=== PATIENT | female | born 1945 | race Caucasian/White ===

== ENCOUNTER 2016-12-29 22:43 | Emergency (ER) | payer MEDICARE, MEDICAID ==
[~2016-12-29] VITALS: Ht 165.1 cm; Wt 61.5 kg
[2016-12-29] MEDS ORDERED: HYDROcodone/APAP 5/325 TABLET ONE (23:20)
[2016-12-29] MEDS ORDERED: HYDROcodone/APAP 5/325 TABLET PO ONE (23:30)
[2016-12-30] MEDS ORDERED: BACITRACIN ZINC OINT 500U/GM, 0.9 GM ONE (01:13)
[2016-12-30 01:28] VITALS: BP 193/95
== END 2016-12-30 01:51 | disposition home or self-care (01) ==
LOC: ED 23:59
DX: G89.11 Acute pain due to trauma (principal); M79.662 Pain in left lower leg; M79.661 Pain in right lower leg; W01.0XXA Fall on same level from slipping, tripping and stumbling without subsequent striking against object, initial encounter; Y93.9 Activity, unspecified; Y99.8 Other external cause status; Y92.009 Unspecified place in unspecified non-institutional (private) residence as the place of occurrence of the external cause; J45.909 Unspecified asthma, uncomplicated; J44.9 Chronic obstructive pulmonary disease, unspecified

== ENCOUNTER 2018-01-08 09:51 | Emergency (ER) | payer MEDICARE, MEDICAID ==
[~2018-01-08] VITALS: Ht 162.6 cm; Wt 61.0 kg
[2018-01-08 10:39] LABS: BASOPHILS # (AUTO) 0.02 x10^3/uL (0-0.1); BASOPHILS % (AUTO) 0 % (0-1); EOSINOPHILS # (AUTO) 0.11 x10^3/uL (0-0.4); EOSINOPHILS % (AUTO) 1 % (1-7); LYMPHOCYTES % (AUTO) 12 % (22-44); MD NO; MEAN CORPUSCULAR HEMOGLOBIN 26.8 pg (27.0-34.8); MEAN CORPUSCULAR HGB CONC 31.7 g/dL (32.4-35.8); MEAN CORPUSCULAR VOLUME 84.4 fL (80-100); MEAN PLATELET VOLUME 7.3 fL (7.4-10.4); MONOCYTES # (AUTO) 0.84 x10^3/uL (0.2-0.8); MONOCYTES % (AUTO) 11 % (2-9); NEUTROPHILS # (AUTO) 5.89 x10^3/uL (1.8-6.8); NEUTROPHILS % (AUTO) 76 % (42-75); PLATELET COUNT 313 x10^3/uL (130-400); RED BLOOD COUNT 6.27 x10^6/uL (3.82-5.3); RED CELL DISTRIBUTION WIDTH 17.9 % (9.6-15.2)
[2018-01-08] MEDS: ALBUTEROL/IPRATROPIUM 2.5MG/0.5MG, 3 ML NPPB SCH (10:42)
[2018-01-08] MEDS ORDERED: ALBUTEROL/IPRATROPIUM 2.5MG/0.5MG, 3 ML ONE ×2 (10:44→12:05)
[2018-01-08 10:51] LABS: ALBUMIN 2.8 g/dL (3.4-5.0); ANION GAP 5 mmol/L (5-15); CALCIUM 8.4 mg/dL (8.5-10.1); CHLORIDE 93 mmol/L (98-107)
[2018-01-08 10:57] LABS: ALANINE AMINOTRANSFERASE 28 U/L (12-78); ALKALINE PHOSPHATASE 85 U/L (45-117); BILIRUBIN,TOTAL 0.5 mg/dL (0.2-1.0); CREATININE 0.98 mg/dL (0.55-1.02); TROPONIN I 0.116 ng/mL (0.000-0.045)
[2018-01-08 11:30] VITALS: BP 176/90
[2018-01-08] MEDS ORDERED: ASPIRIN 81 MG TABLET CHEW PO ONE (12:00)
[2018-01-08] MEDS ORDERED: SODIUM CHLORIDE FLUSH 10ML SYR IVF ONE (12:00)
[2018-01-08] MEDS ORDERED: OMNIPAQUE 350 MG/ML, 100ML BOTTLE ONE (13:07)
[2018-01-09] MEDS ORDERED: HYDROCORT (13:33)
[2018-01-09] MEDS ORDERED: POLY17PO3 PO (13:33)
[2018-01-09] MEDS ORDERED: ALPR1TAB6 PO (13:33)
[2018-01-09] MEDS ORDERED: ALBU18HF PO (13:33)
[2018-01-09] MEDS ORDERED: DICLOFENAC SODIUM (13:34)
[2018-01-09] MEDS ORDERED: HYDR25TA6 PO (14:15)
== END 2018-01-08 14:36 | disposition left against medical advice (07) ==
LOC: ED 14:05
DX: M79.672 Pain in left foot (principal); M25.572 Pain in left ankle and joints of left foot; R60.0 Localized edema; J44.1 Chronic obstructive pulmonary disease with (acute) exacerbation; I50.9 Heart failure, unspecified; J96.91 Respiratory failure, unspecified with hypoxia; F17.200 Nicotine dependence, unspecified, uncomplicated; Z86.19 Personal history of other infectious and parasitic diseases
CPT/HCPCS: 36415; 71045; 71275; 73610; 73630; 80053; 83880; 84484; 85025; 93005; 93970; 94640; 99291; Q9967; 99285; J7620

== ENCOUNTER 2018-01-09 10:03 | Inpatient (IN) | payer MEDICARE, MEDICAID ==
[~2018-01-09] VITALS: Ht 162.6 cm; Wt 61.0 kg
[2018-01-09 10:33] LABS: BASOPHILS # (AUTO) 0.01 x10^3/uL (0-0.1); BASOPHILS % (AUTO) 0 % (0-1); EOSINOPHILS # (AUTO) 0.13 x10^3/uL (0-0.4); EOSINOPHILS % (AUTO) 2 % (1-7); LYMPHOCYTES # (AUTO) 0.86 x10^3/uL (1-3.4); LYMPHOCYTES % (AUTO) 10 % (22-44); MD NO; MEAN CORPUSCULAR HEMOGLOBIN 26.8 pg (27.0-34.8); MEAN CORPUSCULAR HGB CONC 31.8 g/dL (32.4-35.8); MEAN CORPUSCULAR VOLUME 84.5 fL (80-100); MEAN PLATELET VOLUME 7.4 fL (7.4-10.4); MONOCYTES # (AUTO) 0.58 x10^3/uL (0.2-0.8); MONOCYTES % (AUTO) 7 % (2-9); NEUTROPHILS % (AUTO) 81 % (42-75); PLATELET COUNT 299 x10^3/uL (130-400); RED BLOOD COUNT 6.37 x10^6/uL (3.82-5.3); RED CELL DISTRIBUTION WIDTH 18.3 % (9.6-15.2)
[2018-01-09 10:44] LABS: ALANINE AMINOTRANSFERASE 30 U/L (12-78); ANION GAP 5 mmol/L (5-15); CHLORIDE 93 mmol/L (98-107)
[2018-01-09 10:49] LABS: ALKALINE PHOSPHATASE 90 U/L (45-117); BILIRUBIN,TOTAL 0.8 mg/dL (0.2-1.0); TOTAL PROTEIN 7.5 g/dL (6.4-8.2); TROPONIN I 0.051 ng/mL (0.000-0.045)
[2018-01-09] MEDS ORDERED: ASPIRIN 81 MG TABLET CHEW ONE (11:48)
[2018-01-09] MEDS ORDERED: ALBUTEROL/IPRATROPIUM 2.5MG/0.5MG, 3 ML ONE (11:55)
[2018-01-09] MEDS ORDERED: ALBUTEROL/IPRATROPIUM 2.5MG/0.5MG, 3 ML NPPB ONE (12:00)
[2018-01-09] MEDS ORDERED: ASPIRIN 81 MG TABLET CHEW PO ONE (12:00)
[2018-01-09] MEDS ORDERED: ACETAMINOPHEN 325 MG TABLET PO PRN (13:30)
[2018-01-09] MEDS ORDERED: NICOTINE 7 MG/24 HR PATCH.TD24 TD SCH (13:30)
[2018-01-09] MEDS ORDERED: ALPR1TAB6 PO (13:33)
[2018-01-09] MEDS ORDERED: POLY17PO3 PO (13:33)
[2018-01-09] MEDS ORDERED: HYDROCORT (13:33)
[2018-01-09] MEDS ORDERED: ALBU18HF PO (13:33)
[2018-01-09] MEDS ORDERED: DICLOFENAC SODIUM (13:34)
[2018-01-09 14:07] VITALS: BP 178/90
[2018-01-09] MEDS ORDERED: HYDR25TA6 PO (14:15)
[2018-01-09] MEDS: HEPARIN 5,000 UNITS/ML, 1ML SQ SCH ×2 (16:26→21:18)
[2018-01-09] MEDS: NICOTINE 21 MG/24 HR PATCH.TD24 TD SCH (16:29)
[2018-01-09] MEDS: ISOSORBIDE DINITRATE 10 MG TABLET PO SCH ×2 (16:35→21:20)
[2018-01-09] MEDS: CARVEDILOL 6.25 MG TABLET PO SCH (17:53)
[2018-01-09] MEDS: ALBUTEROL/IPRATROPIUM 2.5MG/0.5MG, 3 ML NPPB SCH ×2 (18:00→22:00)
[2018-01-09 18:42] VITALS: BP 162/73
[2018-01-09 21:06] VITALS: BP 171/81
[2018-01-09 21:08] VITALS: BP 156/78
[2018-01-09] MEDS ORDERED: ONDANSETRON 2MG/ML, 2ML IVPush PRN (21:30)
[2018-01-10] MEDS: ALPRazolam 1MG TABLET PO PRN ×2 (00:02→23:44)
[2018-01-10 01:44] VITALS: BP 160/68
[2018-01-10 05:13] LABS: BASOPHILS # (AUTO) 0.06 x10^3/uL (0-0.1); BASOPHILS % (AUTO) 1 % (0-1); EOSINOPHILS % (AUTO) 0 % (1-7); LYMPHOCYTES # (AUTO) 1.19 x10^3/uL (1-3.4); LYMPHOCYTES % (AUTO) 11 % (22-44); MD NO; MEAN CORPUSCULAR HGB CONC 32.3 g/dL (32.4-35.8); MEAN CORPUSCULAR VOLUME 83.8 fL (80-100); MEAN PLATELET VOLUME 7.7 fL (7.4-10.4); MONOCYTES # (AUTO) 0.75 x10^3/uL (0.2-0.8); MONOCYTES % (AUTO) 7 % (2-9); NEUTROPHILS # (AUTO) 8.58 x10^3/uL (1.8-6.8); NEUTROPHILS % (AUTO) 81 % (42-75); PLATELET COUNT 314 x10^3/uL (130-400); RED CELL DISTRIBUTION WIDTH 18.1 % (9.6-15.2)
[2018-01-10 05:17] LABS: ANION GAP 4 mmol/L (5-15); CHLORIDE 95 mmol/L (98-107); CREATININE 0.93 mg/dL (0.55-1.02)
[2018-01-10 06:18] VITALS: BP_SYST 162; BP_SYST 170; BP_DIAS 73; BP_DIAS 80
[2018-01-10] MEDS: CARVEDILOL 6.25 MG TABLET PO SCH (06:19)
[2018-01-10] MEDS: HEPARIN 5,000 UNITS/ML, 1ML SQ SCH ×3 (06:20→22:26)
[2018-01-10] MEDS: ALBUTEROL/IPRATROPIUM 2.5MG/0.5MG, 3 ML NPPB SCH ×5 (07:30→20:00)
[2018-01-10] MEDS: ISOSORBIDE DINITRATE 20 MG TABLET PO SCH ×3 (08:19→21:00)
[2018-01-10 09:23] LABS: TROPONIN I 0.056 ng/mL (0.000-0.045)
[2018-01-10 12:22] VITALS: BP 135/73
[2018-01-10 15:51] VITALS: BP 148/73
[2018-01-10] MEDS: NICOTINE 21 MG/24 HR PATCH.TD24 TD SCH (15:53)
[2018-01-10 18:15] VITALS: BP 120/66
[2018-01-10] MEDS: CARVEDILOL 12.5 MG TABLET PO SCH (18:16)
[2018-01-10 21:51] VITALS: BP 135/71
[2018-01-11 02:21] VITALS: BP 119/52
[2018-01-11 05:18] LABS: BASOPHILS % (AUTO) 0 % (0-1); EOSINOPHILS % (AUTO) 1 % (1-7); LYMPHOCYTES % (AUTO) 20 % (22-44); MEAN CORPUSCULAR HEMOGLOBIN 26.8 pg (27.0-34.8); MEAN CORPUSCULAR HGB CONC 31.6 g/dL (32.4-35.8); MEAN CORPUSCULAR VOLUME 84.7 fL (80-100); MEAN PLATELET VOLUME 7.7 fL (7.4-10.4); MONOCYTES % (AUTO) 10 % (2-9); NEUTROPHILS % (AUTO) 69 % (42-75); PLATELET COUNT 328 x10^3/uL (130-400); RED BLOOD COUNT 5.62 x10^6/uL (3.82-5.3)
[2018-01-11 05:19] LABS: BASOPHILS # (AUTO) 0.03 x10^3/uL (0-0.1); LYMPHOCYTES # (AUTO) 1.94 x10^3/uL (1-3.4); MD NO; MONOCYTES # (AUTO) 1.01 x10^3/uL (0.2-0.8)
[2018-01-11 06:18] VITALS: BP 111/54
[2018-01-11] MEDS: CARVEDILOL 12.5 MG TABLET PO SCH ×2 (06:20→18:20)
[2018-01-11] MEDS: HEPARIN 5,000 UNITS/ML, 1ML SQ SCH ×3 (06:20→20:33)
[2018-01-11] MEDS: ALBUTEROL/IPRATROPIUM 2.5MG/0.5MG, 3 ML NPPB SCH ×4 (06:35→19:04)
[2018-01-11 08:16] VITALS: BP 119/64
[2018-01-11] MEDS: ISOSORBIDE DINITRATE 20 MG TABLET PO SCH ×3 (09:51→20:33)
[2018-01-11 13:13] VITALS: BP 119/55
[2018-01-11] MEDS: NICOTINE 21 MG/24 HR PATCH.TD24 TD SCH (17:05)
[2018-01-11 18:19] VITALS: BP 117/59
[2018-01-11 20:11] VITALS: BP 108/60
[2018-01-11] MEDS: ALPRazolam 1MG TABLET PO PRN (20:34)
[2018-01-12 02:25] VITALS: BP 111/56
[2018-01-12] MEDS: ALBUTEROL/IPRATROPIUM 2.5MG/0.5MG, 3 ML NPPB SCH ×2 (06:40→10:25)
[2018-01-12 06:48] VITALS: BP 148/75
[2018-01-12] MEDS: HEPARIN 5,000 UNITS/ML, 1ML SQ SCH (06:50)
[2018-01-12] MEDS: CARVEDILOL 12.5 MG TABLET PO SCH (06:51)
[2018-01-12 07:10] VITALS: BP 118/65
[2018-01-12] MEDS ORDERED: LISINOPRIL 10 MG TABLET PO SCH (09:00)
[2018-01-12 09:25] VITALS: BP 90/50
[2018-01-12] MEDS ORDERED: LISI-167 PO (10:10)
[2018-01-12] MEDS ORDERED: CARV12.543 PO (10:10)
[2018-01-12] MEDS ORDERED: NICO-487 TD (10:10)
== END 2018-01-12 13:12 | disposition home or self-care (01) | DRG 291 ==
LOC: ED 11:25 → EDIP 12:35 → UNDOADMIN 13:06 → 5SO 14:03 → DCLOUNGE 01-12 13:02
PROVIDERS: ADMIT Internal Medicine; ATTEND Internal Medicine
DX: I11.0 Hypertensive heart disease with heart failure (principal); J96.01 Acute respiratory failure with hypoxia; E87.1 Hypo-osmolality and hyponatremia; J44.1 Chronic obstructive pulmonary disease with (acute) exacerbation; I50.21 Acute systolic (congestive) heart failure; B19.20 Unspecified viral hepatitis C without hepatic coma; N28.9 Disorder of kidney and ureter, unspecified; F17.210 Nicotine dependence, cigarettes, uncomplicated; Z85.828 Personal history of other malignant neoplasm of skin; I25.2 Old myocardial infarction; Z82.0 Family history of epilepsy and other diseases of the nervous system; Z87.01 Personal history of pneumonia (recurrent); Z88.1 Allergy status to other antibiotic agents
CPT/HCPCS: 36415; 36600; 71045; 80048; 80053; 82803; 83880; 84484; 85025; 93005; 93306; 94640; J1644; J7620; J7512

== ENCOUNTER 2020-09-29 16:31 | Emergency (ER) | payer MEDICARE, MEDICAID ==
[~2020-09-29] VITALS: Ht 165.1 cm; Wt 53.0 kg
[~2020-09-29 16:31] MED LIST: ALBU18HF PO; ALPR-585 PO; CARV12.543 PO; DICLOFENAC SODIUM; HYDR25TA6 PO; HYDROCORT; LISI-167 PO; NICO-587 TD; POLY17PO50 PO
[2020-09-29] MEDS ORDERED: ACETAMINOPHEN 325 MG TABLET ONE (17:24)
--- NOTE | 2020-09-29 17:27 | NUR ---
md at bedside to assess, pt found to have a tender abd at left upper quadrant. md orders hold po tylenol, states he will order something iv while pending abd study. no signs or symptoms of acute dsitress noted respirations even and unlabored supported by nc at 4l/min. on library monitor with bed rails up bilaterally and call light in hand.
[2020-09-29] MEDS ORDERED: ACETAMINOPHEN 325 MG TABLET PO ONE (17:30)
[2020-09-29 17:35] LABS: ALBUMIN 2.8 g/dL (3.4-5.0); ANION GAP 4 mmol/L (5-15); CALCIUM 9.4 mg/dL (8.5-10.1); CHLORIDE 102 mmol/L (98-107)
[2020-09-29 17:36] LABS: CREATININE 1.71 mg/dL (0.55-1.02)
[2020-09-29] MEDS ORDERED: ONDANSETRON 2MG/ML, 2ML ONE (17:41)
[2020-09-29] MEDS ORDERED: MORPHINE SULFATE 4 MG/ML, 1ML ONE (17:41)
[2020-09-29 17:45] LABS: BASOPHILS % (AUTO) 0 % (0-1); EOSINOPHILS % (AUTO) 1 % (1-7); LYMPHOCYTES % (AUTO) 16 % (22-44); MEAN CORPUSCULAR HEMOGLOBIN 33.2 pg (27.0-34.8); MEAN CORPUSCULAR HGB CONC 33.3 g/dL (32.4-35.8); MEAN PLATELET VOLUME 8.2 fL (7.4-10.4); MONOCYTES % (AUTO) 11 % (2-9); NEUTROPHILS % (AUTO) 72 % (42-75); PLATELET COUNT 189 x10^3/uL (130-400); RED BLOOD COUNT 6.29 x10^6/uL (3.82-5.3); RED CELL DISTRIBUTION WIDTH 14.5 % (9.6-15.2)
--- NOTE | 2020-09-29 17:47 | NUR ---
TASK RN: Medicated per eMAR. Updated pt on plan. Denies needs at this time.
[2020-09-29 17:48] LABS: MD NO
[2020-09-29] MEDS ORDERED: morphine SULFATE 10 MG/ML, 1ML IV ONE (18:00)
[2020-09-29] MEDS ORDERED: ONDANSETRON 2MG/ML, 2ML IVPush ONE (18:00)
--- NOTE | 2020-09-29 18:15 | NUR ---
Pt standing up, wearing 2L oxygen nasal cannula ambulating to bathroom, satting 91%.
--- NOTE | 2020-09-29 18:21 | NUR ---
TASK RN: Assisted pt to bathroom- pt weak and unsteady. Hooked up to 500mL NS per eMAR. Pt denies other needs at this time.
--- NOTE | 2020-09-29 18:25 | NUR ---
Pt ambulating from bathroom back to bed, no wearing oxygen, desat to 72%.
[2020-09-29] MEDS ORDERED: SODIUM CHLORIDE 0.9%, 500ML IVBOLUS ONE (18:30)
--- NOTE | 2020-09-29 18:30 | NUR ---
Pt back in bed, oxygen sat 78% on RA while pt at rest.
[2020-09-29] MEDS ORDERED: LOSARTAN 25MG TABLET PO ONE (20:00)
--- NOTE | 2020-09-29 20:02 | NUR ---
PT NOTED TO DESAT TO 80% ON ROOM AIR, PUT BACK ON NC AT 2L/MIN WITH SPO2 IMPROVING TO 92%. 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
--- NOTE | 2020-09-29 20:18 | NUR ---
Report from GRISELDA Bermudez.
--- NOTE | 2020-09-29 20:18 | NUR ---
Social work at bedside.
--- NOTE | 2020-09-29 20:18 | NUR ---
PT NIECE STATES SHE WILL GIVE PT A SAFE RIDE HOME, PHONE NUMBER [phone]
--- NOTE | 2020-09-29 20:23 | NUR ---
Social work working on getting home oxygen set-up for pt. Pt resting comfortably on gurney, denies needs at this time.
--- NOTE | 2020-09-29 20:36 | NUR ---
Pt resting, 2L nasal cannula satting 93%.
--- NOTE | 2020-09-29 20:47 | NUR ---
Called pt's niece, reports she is on her way to poultry picker pt.
--- NOTE | 2020-09-29 20:48 | NUR ---
Patient set up with [facility] oxygen. Spoke with Benjamin at answering service and DME order, [employer], and o2 test completed and faxed to [phone]. [facility] states [facility] we have [facility] tanks in our closet and to give one of these to patient and he will meet her at 10pm at her house. Address as well as patients phone number have been verified with both patient and Reymundo. Patients Insurance is Medicare I/P.
--- NOTE | 2020-09-29 21:06 | NUR ---
Social work set up home oxygen- pt will go home with one of our oxygen tanks and a medical service representative from the home oxygen service will meet her at her house [place], get her set-up with her own bottle of oxygen, and return [place]'s oxygen tank. Pt's niece was contacted and is coming to picket [employer] pt and take her home.
--- NOTE | 2020-09-29 21:07 | NUR ---
IV removed, catheter intact, hemostasis achieved, dressing applied.
[2020-09-29 21:10] VITALS: BP 201/93
--- NOTE | 2020-09-29 21:10 | NUR ---
MD AWARE OF PT BP AT DC. MD FEELS COMFORTABLE WITH SAFE DC
== END 2020-09-29 21:21 | disposition home or self-care (01) ==
LOC: ED 19:37
DX: J43.9 Emphysema, unspecified (principal); R07.89 Other chest pain; R11.2 Nausea with vomiting, unspecified; R00.0 Tachycardia, unspecified; I50.9 Heart failure, unspecified; Z85.118 Personal history of other malignant neoplasm of bronchus and lung
CPT/HCPCS: 36415; 71101; 74176; 80048; 82040; 85025; 96374; 96375; 99285; J2270; J2405; J7040; 96361